=== PATIENT | male | born 1955 | race Hispanic/Latino ===

== ENCOUNTER 2022-08-23 12:44 | Outpatient (CLI) | payer OTHER | END 2022-08-23 12:45 | disposition home or self-care (01) | LOC: BICMAMMO 12:44 | PROVIDERS: ATTEND Family Medicine | DX: Z12.31 Encounter for screening mammogram for malignant neoplasm of breast (principal) | CPT/HCPCS: 77063; 77067 ==

== ENCOUNTER 2022-09-03 09:35 | Outpatient (CLI) | payer OTHER | END 2022-09-03 09:36 | disposition home or self-care (01) | LOC: ULT 09:35 → EDSEX 10:15 | PROVIDERS: ATTEND Internal Medicine Gastroenterology | DX: K43.2 Incisional hernia without obstruction or gangrene (principal); R13.14 Dysphagia, pharyngoesophageal phase | CPT/HCPCS: 76705 ==

== ENCOUNTER 2023-10-22 08:20 | Emergency (ER) | payer OTHER ==
[2023-10-22 09:47] LABS: #Basophils Less than 0.03 10x3/uL (0.0-0.2); %Basophils 0.1 % (0.0-1.0); %Eosinophils 5.1 % (0.0-10.0); %Lymphocytes 11.6 % (21.0-51.0); %Monocytes 4.3 % (0.0-10.0); %Neutrophils 78.5 % (42.0-75.0); Hematocrit 42.5 % (36.0-47.0); Hemoglobin 14.5 g/dL (12.0-16.0); Mean Corpuscular HGB CONC 34.1 g/dL (32.0-36.0); Mean Corpuscular Hemoglobin 32.2 pg (27.0-31.0); Mean Corpuscular Volume 94.2 fL (78.0-98.0); Mean Platelet Volume 9.8 fL (7.4-10.4); Platelet Count 189 10x3/uL (130-400); RBC Distribution Width 12.8 % (11.5-14.5); Red Blood Cell (RBC) Count 4.51 mill/uL (4.20-5.40)
[2023-10-22] MEDS ORDERED: diphenhydrAMINE 25 MG CAP ONE (09:54)
[2023-10-22] MEDS ORDERED: Famotidine 20 MG TAB ONE (09:54)
[2023-10-22] MEDS ORDERED: predniSONE 20 MG TAB ONE (09:54)
[2023-10-22] MEDS ORDERED: Ibuprofen 200 MG TAB ONE (09:54)
[2023-10-22 10:03] LABS: ALT (SGPT) 28 U/L (8-55); AST (SGOT) 42 U/L (5-34); Albumin 3.8 g/dL (3.4-4.8); Alkaline Phosphatase 82 U/L (40-110); Anion Gap 12 mmol/L (10-20); BUN (Urea Nitrogen) 13 mg/dL (9.8-20.1); Bilirubin, Total 1.9 mg/dL (0.2-1.2); Calc. Creatinine Clearance 0 mL/min (70-130); Calcium 9.4 mg/dL (7.8-10.44); Carbon Dioxide 27 mmol/L (23-31); Chloride 107 mmol/L (98-107); Estimated GFR 74; Globulin 3.3 g/dL (2.4-3.5); Glucose 107 mg/dL (80-115); Potassium 4.3 mmol/L (3.5-5.1); Protein, Total 7.1 g/dL (5.8-8.1); Sodium 142 mmol/L (136-145)
== END 2023-10-22 11:18 | disposition home or self-care (01) ==
LOC: ERS 08:20
DX: L03.221 Cellulitis of neck (principal); L02.11 Cutaneous abscess of neck; R74.01 Elevation of levels of liver transaminase levels; E80.6 Other disorders of bilirubin metabolism; I25.2 Old myocardial infarction; W57.XXXA Bitten or stung by nonvenomous insect and other nonvenomous arthropods, initial encounter; Z79.82 Long term (current) use of aspirin; Z79.899 Other long term (current) drug therapy
CPT/HCPCS: 36415; 80053; 85025; 99283; J7512

== ENCOUNTER 2024-06-01 07:47 | Outpatient (CLI) | payer OTHER | END 2024-06-01 07:48 | disposition home or self-care (01) | LOC: BICMAMMO 07:47 | PROVIDERS: ATTEND Nurse Practitioner Family | DX: Z12.31 Encounter for screening mammogram for malignant neoplasm of breast (principal) | CPT/HCPCS: 77063; 77067 ==